=== PATIENT | female | born 1965 | race Caucasian/White ===

== ENCOUNTER → 2017-12-27 | Outpatient (CLI) | payer OTHER ==
--- NOTE | 2017-12-28 08:25 | RADIOLOGY IMAGING REPORT ---
[place] [facility] [place] NAME: MEL KOEHLER : [id number] MR: [id number] V: [id number] EXAM DATE: [id number] ORDERING PHYSICIAN: KENYATTA ELLIS TECHNOLOGIST: Shea Carmona PROCEDURE:BILATERAL DIGITAL SCREENING MAMMOGRAM WITH CAD ASSISTED INTERPRETATION AND 3D BREAST TOMOSYNTHESIS. COMPARISON:Prior mammograms dated 10/27/16, 10/26/15, 09/24/15, 09/18/14, 10/26/12 and 10/14/11. INDICATIONS:SCREENING FINDINGS: A small to moderate amount of fibroglandular tissue is seen throughout the breasts. The parenchymal pattern has remained stable when allowing for difference in mammographic technique and patient positioning. There is no evidence of malignant appearing mass, malignant appearing calcification or secondary sign of malignancy in either breast. DIAGNOSTIC CATEGORY 1--NEGATIVE. RECOMMENDATIONS: ROUTINE MAMMOGRAM AND CLINICAL EVALUATION. IMPRESSION: Bi-RADS 1: No significant abnormality is seen. Images were reviewed with R2CAD and 3D breast tomosynthesis. Dictated by: Shweta Riley M.D. on 12/27/2017 at 11:27 Transcribed by: JASSON on 12/27/2017 at 17:55 Approved by: Shweta Riley M.D. on 12/28/2017 at 8:23 [facility]
== END ==
LOC: MAMO 02:30
PROVIDERS: ATTEND Nurse Practitioner Family
DX: Z12.31 Encounter for screening mammogram for malignant neoplasm of breast (principal)
CPT/HCPCS: 77063; 77067

== ENCOUNTER → 2019-01-31 | Outpatient (CLI) | payer OTHER ==
--- NOTE | 2019-02-04 10:47 | RADIOLOGY IMAGING REPORT ---
FACILITY: [facility] - [place] PATIENT NAME: MEL KOEHLER : [id number] MR: [id number] V: [id number] EXAM DATE: ORDERING PHYSICIAN: KENYATTA ELLIS TECHNOLOGIST: Ruby Tellez PROCEDURE:BILATERAL DIGITAL SCREENING MAMMOGRAM WITH CAD ASSISTED INTERPRETATION & 3D TOMOSYNTHESIS COMPARISON:Prior mammograms 12/27/17, 10/27/16, 10/26/15, 09/24/15, 09/18/14, 10/26/12. INDICATIONS:SCREENING FINDINGS: The breasts are heterogeneously dense which can obscure small masses. The parenchymal pattern has remained stable allowing for difference in mammographic technique & patient positioning. DIAGNOSTIC CATEGORY 1--NEGATIVE. RECOMMENDATIONS: ROUTINE MAMMOGRAM AND CLINICAL EVALUATION. IMPRESSION: BIRADS 1: Negative. No significant abnormality is seen. Dictated by: Shweta Riley M.D. on 01/31/2019 at 15:13 Transcribed by: CHIP on 01/31/2019 at 15:27 Approved by: Shweta Riley M.D. on 02/04/2019 at 10:46 [facility]
== END ==
LOC: MAMO 00:35
PROVIDERS: ATTEND Nurse Practitioner Family
DX: Z12.31 Encounter for screening mammogram for malignant neoplasm of breast (principal)
CPT/HCPCS: 77063; 77067